=== PATIENT | male | born 1965 | race Caucasian/White ===

== ENCOUNTER 2024-04-01 09:29 | Emergency (ER) | payer OTHER, SELFPAY ==
[2024-04-01 09:48] VITALS: BP 115/86; PULSE 78; RESP 20; TEMP 36.6; O2SAT 97
[2024-04-01 10:25] LABS: Lactate 0.9 mmol/L (0.6-1.4)
[2024-04-01 10:26] LABS: Abs Immature Grans 0.03 10^3/uL (0.0-0.06); Absolute Basophil Count 0.04 10^3/uL (0.0-0.2); Absolute Eosinophil Count 0.09 10^3/uL (0.0-0.7); Absolute Lymphocyte Count 1.28 10^3/uL (1.2-3.4); Absolute Neutrophil Count 4.72 10^3/uL (1.2-6.7); Basophils % 0.6 %; Eosinophils % 1.4 %; HCT 42.3 % (40.0-50.0); HGB 14.9 g/dL (13.5-17.5); Immature Grans % 0.5 %; Lymphocytes % 19.5 %; MCHC 35.2 % (32.0-36.0); MCV 85 fL (80-95); Monocytes % 6.1 %; Neutrophils % 71.9 %; Platelet Count 354 10^3/uL (130-400); RBC 4.96 10^6/uL (4.36-5.78); RDW 10.9 % (11.8-14.1); RDW-SD 33.5 fL; WBC 6.56 10^3/uL (4.4-10.8)
[2024-04-01 10:43] LABS: ALT 26 U/L (16-63); AST 17 U/L (15-37); Albumin 4.4 g/dL (3.4-5.0); Alkaline Phosphatase 77 U/L (46-116); Anion Gap 6.2 mmol/L (3-11); BUN 14 mg/dL (7-18); Bilirubin, Total 0.6 mg/dL (0.2-1.0); CO2 31.8 mmol/L (21.0-32.0); Calcium 9.6 mg/dL (8.5-10.1); Chloride 103 mmol/L (98-107); Estimated GFR 88.33 (mL/min/1.73m2); Glucose 106 mg/dL (74-106); Potassium 4.1 mmol/L (3.5-5.1); Sodium 141 mmol/L (136-145); Total Protein 8.1 g/dL (6.4-8.2)
[2024-04-01 10:59] LABS: Procalcitonin < 0.1 ng/mL
[2024-04-01 11:36] LABS: Bilirubin Negative (Negative); Blood Trace-intact (Negative); Clarity Sl Cloudy (Clear); Glucose Negative (Negative); Ketones Negative (Negative); Leukocyte Esterase Large (Negative); Nitrite Positive (Negative); Specific Gravity 1.015 (1.005-1.025); Urobilinogen 0.2 mg/dL (Up to 0.2)
[2024-04-01 11:43] LABS: Epithelial Cells Moderate HPF (Negative); WBC 20-50 HPF (0-5)
[2024-04-01 11:44] LABS: Bacteria Few HPF (Negative); C & S Indicated? No/Sq. Contamination; Casts Negative LPF (Negative); Crystals Negative HPF (Negative); Mucus Trace (Negative)
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
[2024-04-01 12:09] VITALS: BP 115/86; PULSE 78; RESP 20; TEMP 36.6; O2SAT 97
== END 2024-04-01 12:22 | disposition home or self-care (01) ==
PROVIDERS: Emergency Provider Student in an Organized Health Care Education/Training Program; PCP Internal Medicine
DX: N39.0 Urinary tract infection, site not specified; N31.9 Neuromuscular dysfunction of bladder, unspecified; Z96.82 Presence of neurostimulator; Z87.440 Personal history of urinary (tract) infections
CPT/HCPCS: 80053; 84145; 99283; 81003; 81015; 83605; 85025; 99284

== ENCOUNTER 2024-04-05 15:15 | Emergency (ER) | payer OTHER, SELFPAY ==
[2024-04-05] VITALS (8 sets, daily range): BP systolic 118–143; BP diastolic 85–100; PULSE 72–76; RESP 16; TEMP 36.7; O2SAT 97–100
--- NOTE | 2024-04-05 15:56 | ED.GENADUL_ITS ---
Discharge Plan Disposition Patient Disposition: Home Condition: Improving Discharge Details Clinical Impression: Acute flank pain, Acute UTI Primary Care Provider: Bird Chao ED Provider: Demar Latham Home Meds and New Rx's Prescriptions: New cefpodoxime 200 mg tablet 200 mg PO BID 10 Days Qty: 20 0RF Rx Instructions: must administer with a meal/food No Action sulfamethoxazole-trimethoprim [Bactrim DS] 800-160 mg tablet 1 tab PO BID aripiprazole [Abilify] 2 mg tablet 2 mg PO DAILY tamsulosin [Flomax] 0.4 mg capsule 0.4 mg PO DAILY metoprolol tartrate 25 mg tablet 25 mg PO BID aspirin 81 mg capsule 81 mg PO DAILY Discharge Instructions Instructions: Urinary Tract Infection, Adult ED Additional Instructions: Please discontinue old antibiotic and start new antibiotic cefpodoxime. Please return to the emerged part for any worsening symptoms HPI General Date/Time Provider Initiated Documentation: 04/05/24 15:47 . HPI Narrative: 58-year-old male history of bladder stimulator, recurrent UTIs currently on Bactrim for urinary tract infection presents with worsening left flank discomfort nausea over the last couple of days. Related Data Home Medications Medication Instructions Recorded Confirmed aripiprazole 2 mg tablet (Abilify) 2 mg PO DAILY 04/01/24 04/05/24 aspirin 81 mg capsule 81 mg PO DAILY 04/01/24 04/05/24 metoprolol tartrate 25 mg tablet 25 mg PO BID 04/01/24 04/05/24 sulfamethoxazole 800 1 tab PO BID 04/01/24 04/05/24 mg-trimethoprim 160 mg tablet (Bactrim DS) tamsulosin 0.4 mg capsule (Flomax) 0.4 mg PO DAILY 04/01/24 04/05/24 cefpodoxime 200 mg tablet 200 mg PO BID 10 days #20 tabs 04/05/24 Previous Rx's Medication Instructions Recorded cefpodoxime 200 mg tablet 200 mg PO BID 10 days #20 tabs 04/05/24 Allergies Allergy/AdvReac Type Severity Reaction Status Date / Time ciprofloxacin [From Cipro] Allergy Mild Hives Verified 04/05/24 15:21 General Stated Complaint: FlankPain TIERNEY: 3 Review of Systems Narrative: Review of Systems Constitutional: negative Eyes: negative ENT: negative Cardiovascular: negative Respiratory: negative Gastrointestinal: Nausea : Left flank pain Musculoskeletal: negative Skin: negative Neurologic: negative Psych: negative Exam Narrative Exam Narrative: Physical Examination General: alert, awake, cooperative, resting comfortably, no acute distress HEENT: normocephalic, atraumatic; PERRL, EOM intact, conjunctiva normal; no nasal discharge; moist mucous membranes, oral and pharyngeal mucosa normal, tolerating secretions Neck: supple, trachea midline; full ROM Chest: normal to inspection Respiratory: normal respiratory effort, speaking in full sentences, clear to auscultation, no wheezing, rales or rhonchi Cardiac: regular rate, regular rhythm, S1S2 intact, no murmurs rubs or gallops GI: abdomen soft, non-tender, non-distended; no palpable mass or hepatosplenomegaly Back: Mild left flank discomfort with percussion Skin: no lesions, rashes or trauma appreciated Neuro: AAOx3, normal speech, moving all extremities Psych: Appropriate mood and affect Course Vital Signs Vital signs: Vital Signs Temperature 36.7 C 04/05/24 15:18 Pulse 76 04/05/24 15:18 Respiratory Rate 16 04/05/24 15:18 Blood Pressure 136/85 04/05/24 15:18 Pulse Oximetry 100 04/05/24 15:18 Temperature 36.7 C 04/05/24 15:18 Temperature Source Temporal Artery Scan 04/05/24 15:18 Pulse 76 04/05/24 15:18 Respiratory Rate 16 04/05/24 15:18 Blood Pressure 136/85 04/05/24 15:18 Pulse Oximetry 100 04/05/24 15:18 Medical Decision Making 58-year-old male history of bladder stimulator, recurrent UTIs, currently on Bactrim presents with worsening left flank discomfort and nausea, no active vomiting, afebrile nontoxic mild CVA tenderness with percussion nonperitoneal, was unable to find urine culture from last visit will send urine culture today, will change patient's antibiotic regimen to cefpodoxime 20 mg twice daily for 10 days, given nontoxic appearance recent medical evaluation with laboratory workup will trial p.o. meds IM meds close reassessment of symptomatology if improving and persistently nontoxic will be discharged with home care instructions and return precautions. Low suspicion for kidney stones must consider early pyelonephritis 17: 40 patient resting company no acute distress is able to tolerate p.o. antibiotics. Urine culture has been sent. Will call in prescription for cefpodoxime. Home care instruction return precautions given Quality:SDOH Health Related Social Needs: No Data to Display PFSH All Active Problems (Updated 04/05/24 @ 17:40 by Demar Latham MD) Acute UTI (Acute) Acute flank pain (Acute) Urinary tract infection (Acute) Social History Smoking/Tobacco Use Status: Never Smoking risk assessment performed?: Yes Alcohol Intake: never Substance use type: does not use Additional Social history: currently incarcerated for next 7-8 years
[2024-04-05] MEDS: Acetaminophen 325 MG TAB 650 MG PO (16:07)
[2024-04-05] MEDS: Ketorolac 15 MG/ML VIAL IM (16:07)
[2024-04-05] MEDS: Ondansetron O.D.T. 4 MG TABEF SL (16:08)
[2024-04-05] MEDS: Cefpodoxime 200 MG TAB PO (16:08)
== END 2024-04-05 17:46 | disposition home or self-care (01) ==
PROVIDERS: Emergency Provider Emergency Medicine; PCP Internal Medicine
DX: R10.30 Lower abdominal pain, unspecified (principal); R11.2 Nausea with vomiting, unspecified; N39.0 Urinary tract infection, site not specified
CPT/HCPCS: 96372; 99284; 87086; 99283; J1885

== ENCOUNTER 2024-04-05 23:56 | Observation (INO) | payer OTHER, SELFPAY ==
[2024-04-05 23:44] VITALS: BP 150/91; PULSE 80; RESP 17; TEMP 36.4; O2SAT 98
--- NOTE | 2024-04-05 23:52 | ED.GENADUL_ITS ---
Discharge Plan Disposition Patient Disposition: Admit to [facility] Condition: Stable Discharge Details Clinical Impression: Pyelonephritis Primary Care Provider: Bird Chao ED Provider: Jhonny Garber [place] Meds and New Rx's Prescriptions: No Action sulfamethoxazole-trimethoprim [Bactrim DS] 800-160 mg tablet 1 tab PO BID aripiprazole [Abilify] 2 mg tablet 2 mg PO DAILY tamsulosin [Flomax] 0.4 mg capsule 0.4 mg PO DAILY metoprolol tartrate 25 mg tablet 25 mg PO BID aspirin 81 mg capsule 81 mg PO DAILY cefpodoxime 200 mg tablet 200 mg PO BID 10 Days Qty: 20 0RF Rx Instructions: must administer with a meal/food HPI General Mode of arrival: ambulatory . Date/Time Provider Initiated Documentation: 04/06/24 00:03 . Limitations to Documentation: no limitations . Information obtained by: patient . HPI Narrative: Patient presents to ED for second time today and third time in 4 days for presumed UTI, pyelonephritis. Patient with a nonfunctioning bladder stimulator. He is able to urinate but will straight cath at the end of each day to be sure the bladder is empty before bed. Currently incarcerated. Initial visit to ED resulted in patient being started on Bactrim. Subsequent visit today for flank pain resulted in change from Bactrim to cefpodoxime. He was returned to present but developed severe worsening pain in the left flank, new pain in the right flank, chills, vomiting. At this point no urine culture is actually available. Initial urine was not cultured because of epithelial cell contamination. New culture was sent today but is pending. Related Data Home Medications Medication Instructions Recorded Confirmed aripiprazole 2 mg tablet (Abilify) 2 mg PO DAILY 04/01/24 04/05/24 aspirin 81 mg capsule 81 mg PO DAILY 04/01/24 04/05/24 metoprolol tartrate 25 mg tablet 25 mg PO BID 04/01/24 04/05/24 sulfamethoxazole 800 1 tab PO BID 04/01/24 04/05/24 mg-trimethoprim 160 mg tablet (Bactrim DS) tamsulosin 0.4 mg capsule (Flomax) 0.4 mg PO DAILY 04/01/24 04/05/24 cefpodoxime 200 mg tablet 200 mg PO BID 10 days #20 tabs 04/05/24 04/05/24 Previous Rx's Medication Instructions Recorded cefpodoxime 200 mg tablet 200 mg PO BID 10 days #20 tabs 04/05/24 Allergies Allergy/AdvReac Type Severity Reaction Status Date / Time ciprofloxacin [From Cipro] Allergy Mild Hives Verified 04/05/24 23:55 General Stated Complaint: FlankPain TIERNEY: 3 Review of Systems Narrative: Per HPI Exam Narrative Exam Narrative: Const: WDWN male in NAD. VS per triage. HEENT: NC/AT. Normal facial exam. Neck: Supple. Trachea midline. Lungs: Normal respiratory effort. Lungs are clear. Cor: RRR without murmur. Good radial pulses. GI: Soft/ND/NT. Back: Left CVAT present. Mild right CVAT present. Neuro: A+O x 3. Normal speech, mentation, gait. Cranial nerves II - XII grossly intact. No gross motor or sensory deficit. Ext: No C/C/E. Course Vital Signs Vital signs: Vital Signs Temperature 97.5 F L 04/05/24 23:44 Pulse 80 04/05/24 23:44 Respiratory Rate 17 04/05/24 23:44 Blood Pressure 150/91 H 04/05/24 23:44 Pulse Oximetry 98 04/05/24 23:44 Temperature 97.5 F L 04/05/24 23:44 Pulse 80 04/05/24 23:44 Respiratory Rate 17 04/05/24 23:44 Blood Pressure 150/91 H 04/05/24 23:44 Pulse Oximetry 98 04/05/24 23:44 Oxygen Delivery Method Room Air 04/05/24 23:44 Oxygen Flow Rate 0 04/05/24 23:44 Pain Level 10 04/05/24 23:44 Medical Decision Making Patient arrives with worsening back and flank pain now associated with chills and vomiting. On Bactrim for presumed UTI and changed to cefpodoxime today. Did get a single evening dose of the cefpodoxime but vomited 2 hours later. He has allergies to fluoroquinolones. He is afebrile here and hemodynamically stable. Has significant left CVAT and mild right CVAT. IV established and fluids started. He is given a gram of ceftriaxone. He is given morphine and ondansetron for symptoms. Repeat labs and a stone study CT ordered. Patient's white count remains normal with normal differential. Chemistries remain normal. CT scan preliminary read with out evidence of ureteral stone or obstruction. Patient is feeling better after fluids, pain meds and antiemetics. Given 4 days of outpatient treatment with Bactrim and second visit to ED today for worsening pain and now vomiting and chills will plan admission to hospitalist for further IV antibiotic, symptom control pending results of today's urine culture. Discussed with patient. Discussed with hospitalist. Medical Records Medical records reviewed: Yes I reviewed the patient's medical records. Medical records narrative: Previous to ED visit Lab Data Lab results reviewed: Yes I reviewed the patient's lab results. Lab results narrative: Labs from 4 days ago and from today. Quality:SDOH Health Related Social Needs: No Data to Display PFSH All Active Problems (Updated 04/06/24 @ 02:47 by Jhonny Garber MD) Pyelonephritis (Acute) Acute UTI (Acute) Acute flank pain (Acute) Urinary tract infection (Acute) Medical History (Updated 04/06/24 @ 02:47 by Jhonny Garber MD) Neurogenic bladder Surgical History (Updated 04/05/24 @ 23:57 by Jhonny Garber MD) S/P implantation of urinary electronic stimulator device Social History Smoking/Tobacco Use Status: Never Smoking risk assessment performed?: Yes Alcohol Intake: never Substance use type: does not use Housing: other Additional Social history: currently incarcerated for next 7-8 years
[2024-04-05 23:56] VITALS: BP 150/91; PULSE 80; RESP 17; TEMP 36.4; O2SAT 98
[2024-04-06] VITALS (8 sets, daily range): BP systolic 104–135; BP diastolic 76–93; PULSE 62–90; RESP 16–18; TEMP 36.5–37.3; O2SAT 95–98
--- NOTE | 2024-04-06 | DI.CT_ITS ---
Exam(s) CT RENAL COLIC WO EXAM: CT RENAL COLIC WO CLINICAL HISTORY: uti, worsening left flank pain. TECHNIQUE: Imaging Protocol: Axial computed tomography images with coronal and sagittal reformatted images were created and reviewed. CONTRAST MATERIAL: Noncontrast COMPARISON: No exams were available for comparison FINDINGS: ABDOMEN: Lung Bases: Normal where visualized. Small hiatal hernia. Liver: Normal attenuation. No measurable mass. Gallbladder and biliary tract: No radiodense calculus or dilation. Pancreas: Normal density, no calcifications or inflammatory process. Spleen: Normal. Kidneys: Normal size, contour and axis. No radiodense stones or obstructive uropathy. No masses seen. Adrenal glands: No masses seen. Abdominal Aorta: Abdominal portion non-dilated. Soft tissues: Lower anterior midline scar PELVIS: Bladder: somewhat distended. There is anterior wall thickening of the bladder. No evidence of ston es.No visible mass. Bowel: No obstruction or bowel wall thickening. Increased quantity of stool. Mild diverticulosis. No evidence of diverticulitis. Reproductive: Prostate not enlarged. Calcification is present. Peritoneal cavity: No ascites, collection or mesenteric inflammatory response. Bones: Unremarkable for age.. Sacral stimulator device. IMPRESSION: No evidence of urinary tract calculi or hydronephrosis. RADIATION DOSE DELIVERED: Total DLP DATA REPOSITORY: All CT scans at this facility are submitted to the National Radiology Data Registry (NRDR) Dose Index Registry (DIR) with the [employer] (ACR). RADIATION OPTIMIZATION: All CT scans at this facility use at least one of these dose optimization te chniques: automated exposure control; mA and/or kV adjustment per patient size (includes targeted exa ms where dose is matched to clinical indication); or iterative reconstruction.
[2024-04-06] MEDS: Ondansetron O.D.T. 4 MG TABEF PO ×2 (00:26→08:31)
[2024-04-06] MEDS: Ketorolac 15 MG/ML VIAL IVP ×4 (00:26→19:59)
[2024-04-06] MEDS: Lactated Ringers 1,000 ML 1000 ML IV (00:27)
[2024-04-06] MEDS: MORPHine 4 MG/ML SYR IVP ×2 (00:27→06:49)
[2024-04-06] MEDS: cefTRIAXone 1 GM VIAL (00:44)
[2024-04-06 00:45] LABS: Abs Immature Grans 0.04 10^3/uL (0.0-0.06); Absolute Basophil Count 0.04 10^3/uL (0.0-0.2); Absolute Eosinophil Count 0.09 10^3/uL (0.0-0.7); Absolute Monocyte Count 0.61 10^3/uL (0.1-0.8); Absolute Neutrophil Count 5.17 10^3/uL (1.2-6.7); Basophils % 0.5 %; Eosinophils % 1.1 %; HCT 37.9 % (40.0-50.0); HGB 13.3 g/dL (13.5-17.5); Immature Grans % 0.5 %; Lymphocytes % 25.2 %; MCHC 35.1 % (32.0-36.0); MCV 86 fL (80-95); MPV 8.9 fL (8.0-11.0); Monocytes % 7.7 %; Platelet Count 315 10^3/uL (130-400); RBC 4.43 10^6/uL (4.36-5.78); RDW-SD 34.2 fL; WBC 7.95 10^3/uL (4.4-10.8)
[2024-04-06] MEDS: cefTRIAXone 1 GM/50 ML BAG IVPB (00:45)
[2024-04-06 00:49] LABS: Anion Gap 9.3 mmol/L (3-11); BUN 9 mg/dL (7-18); CO2 27.7 mmol/L (21.0-32.0); CREATININE 1.1 mg/dL (0.70-1.30); Calcium 9.1 mg/dL (8.5-10.1); Chloride 103 mmol/L (98-107); Estimated GFR 78.79 (mL/min/1.73m2); Glucose 103 mg/dL (74-106); Potassium 4.4 mmol/L (3.5-5.1); Sodium 140 mmol/L (136-145)
--- NOTE | 2024-04-06 02:35 | DI.VRAD_ITS ---
PROCEDURE INFORMATION: Exam: CT Abdomen And Pelvis Without Contrast Exam date and time: 04/06/2024 12:56 AM Age: 58 years old Clinical indication: Abdominal pain; Prior surgery; Surgery date: 6+ months; Surgery type: Bladder pacemaker per patient; Patient HX: UTI, worsening left flank pain, TECHNIQUE: Imaging protocol: Computed tomography of the abdomen and pelvis without contrast. COMPARISON: No relevant prior studies available. FINDINGS: Tubes, catheters and devices: Subcutaneously implanted device in the upper right buttock with an associated lead extending through a left sacral neural foramen. Correlation with procedure history recommended. Lungs: Lung bases clear. Diaphragm: Small hiatal hernia. Liver: Grossly unremarkable unenhanced liver. Gallbladder and bile ducts: Gallbladder partially collapsed. No calcified gallstones seen. No biliary dilatation. Pancreas: Grossly unremarkable unenhanced pancreas. Spleen: Grossly unremarkable unenhanced spleen. Adrenal glands: Normal appearing adrenal glands. Kidneys and ureters: Small indeterminate hypoattenuating left renal lesion, not well characterized but statistically most likely a small renal cyst. Otherwise grossly unremarkable unenhanced kidneys. No radiopaque urinary tract stones, hydronephrosis, or evidence of recent stone passage. Stomach and bowel: No oral contrast. Stomach partially decompressed. No small bowel dilatation to suggest obstruction. Normal-appearing colon. No evidence of diverticulitis or colitis. Appendix: Appendix not identified, obscured if present. Correlation with surgical history recommended. If there is clinical concern for acute appendicitis and the patient still has an appendix, additional evaluation would be recommended. Intraperitoneal space: No gross ascites or free air. Vasculature: Normal caliber abdominal aorta. Lymph nodes: No pathologically enlarged mesenteric, retroperitoneal, or pelvic sidewall lymph nodes. Urinary bladder: Normal appearing urinary bladder. Reproductive: Normal-sized prostate gland and seminal vesicles. Coarse prostate calcifications. Bones/joints: No acute fracture seen among the bones of the abdomen or pelvis. Soft tissues: No significant ventral or inguinal hernia. IMPRESSION: 1. No radiopaque urinary tract stones, hydronephrosis, or evidence of recent stone passage. 2. No acute bowel pathology demonstrated. 3. Small hiatal hernia. Dictated and Authenticated by: Salas Cristina MD. Ordering:DAFNE Barry MD
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
[2024-04-06] MEDS: Normal Saline Flush 10 ML SYR IVP ×4 (06:48→18:09)
[2024-04-06 07:13] LABS: Calculated LDL 95 mg/dL (<100); Cholesterol 159 mg/dL (<200); HDL Cholesterol 48 mg/dL (40-60); Triglyceride 81 mg/dL (<150)
[2024-04-06] MEDS: Tamsulosin 0.4 MG CAPCR PO (08:26)
[2024-04-06] MEDS: Aspirin 81 MG CHEW PO (08:26)
[2024-04-06] MEDS: ARIPiprazole 2 MG TAB PO (08:26)
[2024-04-06] MEDS: Metoprolol 12.5 MG TAB 25 MG PO ×2 (08:26→19:59)
[2024-04-06] MEDS: Enoxaparin 40 MG/0.4 ML SYR SC (08:26)
--- NOTE | 2024-04-06 09:58 | W.PM.PROGNOT ---
Date of Service Date of service: 04/06/24 Time of Service: 09:59 Assessment and Plan Assessment and plan (1) Pyelonephritis: Start date: 04/06/24 Status: Acute Assessment and plan: Renal CT shows no evidence of hydronephrosis, stones. Patient reported appendectomy correlating inability to locate appendixx on imaging left renal cyst as per CT w/o -Kidneys and ureters: Small indeterminate hypoattenuating left renal lesion, not well characterized but statistically most likely a small renal cyst. Otherwise grossly unremarkable unenhanced kidneys. No radiopaque urinary tract stones, hydronephrosis, or evidence of recent stone passage. Cyst to the left kidney:No calcification seen, hairline thin wall, hypodense most likely not an Bosniak >= IIF Pain management with scheduled acetaminophen and ketorolac. PRN morphine dose reduced On ceftriaxone Procal pending (2) Acute UTI: Start date: 04/01/24 Status: Acute Assessment and plan: As above (3) Neurogenic bladder: Assessment and plan: Bladder stimulator not functional as per patient; straight cath once a day opt Wade in place (4) HTN (hypertension): Status: Chronic Assessment and plan: On metoprolol Qualifiers: Hypertension type: primary hypertension Qualified Code(s): I10 - Essential (primary) hypertension (5) Restless leg syndrome: Status: Chronic Assessment and plan: On abilify at home, ongoing inpatient (6) CAD (coronary artery disease), [place] coronary artery: Status: Chronic Assessment and plan: On plavix and ASA Discuss with Dr. Ghosh Qualifiers: [place] vs. transplanted heart: [place] heart Associated angina: without angina Qualified Code(s): I25.10 - Atherosclerotic heart disease of [place] coronary artery without angina pectoris Subjective Subjective Patient reports: no new complaints, still having pain, pain is less, tolerating liquids well, tolerating a regular diet and nausea; denies diarrhea, vomiting or shortness of breath Exam Narrative Exam Narrative: Constitutional In bed w/o acute distress HENMT: Facial structures with normal appearance Eyes: Well aligned Neuro:alert and oriented to self, person, place, time and situation. No neurological focal deficit Chest:Chest is symmetrical and normal appearance Resp:Clear lung bilaterally Cardio: regular rhythm, S1, S2, no murmur,no edema GI: Abdomen is not distended, soft and tender left upper and lower quadrant , bowel sounds are present : Positive left Costovertebral angle tenderness, no bladder distension Back/spine/Pelvis: No back tenderness, normal alignment Integumentary: No skin lesions or rash on exposed skin Psych: RASS 0, congruent mood and normal affect. Objective Last Vital Signs Temp 36.8 C 04/06/24 07:29 Pulse 71 04/06/24 07:29 Resp 17 04/06/24 07:29 BP 135/84 04/06/24 07:29 Pulse Ox 97 04/06/24 07:29 Laboratory Results - last 24 hr 04/06/24 04/06/24 04/06/24 00:30 00:40 06:50 WBC 7.95 RBC 4.43 Hgb 13.3 L Hct 37.9 L MCV 86 MCH 30.0 MCHC 35.1 RDW 11.0 L Plt Count 315 MPV 8.9 Immature Gran % 0.5 Neutrophils % 65.0 Lymphocytes % 25.2 Monocytes % 7.7 Eosinophils % 1.1 Basophils % 0.5 Nucleated RBC % 0.0 Absolute Neutrophils 5.17 Absolute Lymphocytes 2.00 Absolute Monocytes 0.61 Absolute Eosinophils 0.09 Absolute Basophils 0.04 Sodium 140 Potassium 4.4 Chloride 103 Carbon Dioxide 27.7 Anion Gap 9.3 BUN 9 Creatinine 1.1 Est GFR (CKD-EPI 2020) 78.79 Glucose 103 Calcium 9.1 Magnesium 2.0 Triglycerides 81 Total Cholesterol 159 LDL Cholesterol, Calc 95 HDL Cholesterol 48 Time Spent with Patient Time Spent with Patient: >50 minutes Time was spent: preparing to see the patient(eg.review tests), obtaining and/or reviewing separately otained hiistory, ordering medications,tests, procedures, referring, communicating with other health caregiver assisted living, indepentently interpreting results, counseling the patient and care coordination
--- NOTE | 2024-04-06 10:00 | INITIAL_ITS ---
Date of service: 04/06/24 Time of Service: 10:00 Care Management Initial Assmt Initial Assessment Reason for Hospitalization: pyelonephritis Functional Status/Living Situation Patient Presentation: Major was lying in bed with a weapons officer naval activity in attendance. He was polite but brief in his responses. Major is not and does not have any children. He has 2 sisters in [place] and speaks to them on the phone occasionally. He also has a brother that he does not communicate with. 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 His is independent with ADLs. Town of Residence: [facility] Resides with: Other ( [facility]) Significant Other/Family: Out of area (family in [place]) Employment Status: Unemployed Instrumental Activities of Daily Living (ADLs): Independent Medications Medication Management: No Issues/Barriers identified Advance Directives Advance Directives: Do you have an Advance Directive: N 04/01/24 09:30 AD On File at [facility]: N 04/01/24 09:40 Date Asked 04/01/24 04/01/24 09:40 AD Date Reviewed COLST On File at [facility] COLST Date Scanned Code Status Resuscitation Status Full Code Portal Pt does not currently have a portal and education provided: No Insurance Coverage/Financial Issues Insurance: [facility] ACO Member: No Care Team Visit Care Team Role Provider Type Bird Chao Primary Care Provider [facility] STAFF PHYSICIAN Jhonny Garber MD Emergency Provider [facility] STAFF PHYSICIAN Moses Nuñez Admit Provider NON-[facility] STAFF PHYSICIAN Attending Provider Discharge Potential Discharge Needs: PCP F/U Appt Anticipated Barriers to Discharge: None Identified Patient/Family Education Needs: Review discharge instructions, discuss Ask Me Three Transportation: Other (corrections staff) Plan: Major will return to [facility] when medically cleared. He will follow up with their providers and plan of care and transport with corrections officers. CM will follow and support discharge needs. PFSH All Active Problems (Updated 04/06/24 @ 06:40 by Moses Nuñez) CAD (coronary artery disease), [place] coronary artery (Chronic) Restless leg syndrome (Chronic) HTN (hypertension) (Chronic) Pyelonephritis (Acute) Acute UTI (Acute) Acute flank pain (Acute) Urinary tract infection (Acute) Medical History Neurogenic bladder Surgical History S/P implantation of urinary electronic stimulator device Social History Smoking/Tobacco Use Status: Never Smoking risk assessment performed?: Yes Alcohol Intake: never Substance use type: does not use Housing: other Additional Social history: currently incarcerated for next 7-8 years SDOH(Care Management) Screening Will the Patient Participate in the Screening?: Unable to obtain Social Determinants of Health Comments(SDOH Details): incarcerated
[2024-04-06 10:43] LABS: Procalcitonin < 0.1 ng/mL
--- NOTE | 2024-04-06 12:08 | PHA.REVIEW2 ---
Pharmacy Admission Review Admission Clinical Review Admission Pharmacy Review: Pyelonephritis (Acute) Acute UTI (Acute) ciprofloxacin [From Cipro] Allergy (Mild, Verified 04/05/24 23:55) Hives Resuscitation Status Full Code Height 5 ft 9 in Weight 81.647 kg Comments Comments/Follow Ups: Watch BP, HR, labs for culture results and for med changes. Pharmacy Admission Review Renal Dosing Renal Dosing: BUN 9 mg/dL (7-18) 04/06/24 00:30 Creatinine 1.1 mg/dL (0.70-1.30) 04/06/24 00:30 Medications needing adjustments: Reviewed (Crcl ~86.6 mL/min current meds okay) Anticoagulation Anticoagulation: Hgb 13.3 g/dL (13.5-17.5) L 04/06/24 00:40 Hct 37.9 % (40.0-50.0) L 04/06/24 00:40 Plt Count 315 10^3/uL (130-400) 04/06/24 00:40 Creatinine 1.1 mg/dL (0.70-1.30) 04/06/24 00:30 DVT Prophylaxis: Reviewed Medications: Enoxaparin Opiate Usage Evaluate Pain Scale/Pains Meds: Reviewed Scheduled Bowel Reg ordered if on Opiates?: No (has PRN meds ordered) Relevant Labs Relevant Labs: Sodium 140 mmol/L (136-145) 04/06/24 00:30 Potassium 4.4 mmol/L (3.5-5.1) 04/06/24 00:30 Chloride 103 mmol/L (98-107) 04/06/24 00:30 Magnesium 2.0 mg/dL (1.8-2.4) 04/06/24 06:50 Electrolytes, C-Reactive P, ESR: Reviewed DM Control DM Control: N/A Cardiac Review BP, HR, EF%: Reviewed (BP and HR have been normal to high so far this admission) QTc Review QTc: N/A IV to PO Switch IV Medications: Reviewed Home Meds Home Med List reviewed: Reviewed Relevent Home Meds Not ordered & why?: cefpodoxime and sulfamethoxazole/trimethoprim (has IV antibiotics ordered) Current Meds Current Medication Order Review: Intervened (Discontinued duplicate med orders; adjusted two PRN meds to they cross over to pyxis correctly.) Pharmacy Antibiotic Review Relevant Labs: Relevant Labs 04/06/24 00:30 Procalcitonin < 0.1 Pharmacy Antibiotic Activity: C/S review and Reviewed, no change Comments: Urine culture no growth at 24 hours. Ceftriaxone ordered for UTI. Comments Comments/Follow Ups: Watch BP, HR, labs for culture results and for med changes.
[2024-04-06] MEDS: Acetaminophen 325 MG TAB PO ×3 (12:28→23:57)
[2024-04-06] MEDS: MORPHine 2 MG/ML SYR IVP (18:09)
[2024-04-06] MEDS: CEFEPIME 2 GM in Normal Saline 100 ML IVPB (18:14)
[2024-04-07] MEDS: Ketorolac 15 MG/ML VIAL IVP ×4 (02:10→19:53)
[2024-04-07] MEDS: CEFEPIME 2 GM in Normal Saline 100 ML IVPB ×3 (02:10→17:41)
[2024-04-07 03:19] VITALS: BP 121/83; PULSE 69; RESP 19; TEMP 36.2; O2SAT 100
[2024-04-07] MEDS: Acetaminophen 325 MG TAB PO ×4 (06:01→23:54)
[2024-04-07 06:50] LABS: HCT 38.8 % (40.0-50.0); HGB 13.6 g/dL (13.5-17.5); MCHC 35.1 % (32.0-36.0); MCV 86 fL (80-95); MPV 9.2 fL (8.0-11.0); Platelet Count 329 10^3/uL (130-400); RBC 4.54 10^6/uL (4.36-5.78); RDW 11.2 % (11.8-14.1); RDW-SD 34.6 fL; WBC 6.05 10^3/uL (4.4-10.8)
[2024-04-07 07:08] LABS: ALT 21 U/L (16-63); AST 11 U/L (15-37); Albumin 3.8 g/dL (3.4-5.0); Alkaline Phosphatase 59 U/L (46-116); Anion Gap 5.9 mmol/L (3-11); BUN 6 mg/dL (7-18); Bilirubin, Total 0.5 mg/dL (0.2-1.0); CO2 28.1 mmol/L (21.0-32.0); Calcium 8.9 mg/dL (8.5-10.1); Chloride 107 mmol/L (98-107); Estimated GFR 88.33 (mL/min/1.73m2); Glucose 89 mg/dL (74-106); Magnesium 2.1 mg/dL (1.8-2.4); Potassium 4.8 mmol/L (3.5-5.1); Sodium 141 mmol/L (136-145); Total Protein 6.8 g/dL (6.4-8.2)
[2024-04-07 07:14] VITALS: BP 128/87; PULSE 71; RESP 17; TEMP 36.6; O2SAT 98
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
[2024-04-07] MEDS: Normal Saline Flush 10 ML SYR IVP ×4 (08:29→17:41)
[2024-04-07] MEDS: Enoxaparin 40 MG/0.4 ML SYR SC (08:32)
[2024-04-07] MEDS: Tamsulosin 0.4 MG CAPCR PO (08:32)
[2024-04-07] MEDS: ARIPiprazole 2 MG TAB PO (08:32)
[2024-04-07] MEDS: Metoprolol 12.5 MG TAB 25 MG PO ×2 (08:32→19:53)
[2024-04-07] MEDS: Aspirin 81 MG CHEW PO (08:32)
--- NOTE | 2024-04-07 09:28 | CMPROGNOTE_ITS ---
Date of service: 04/07/24 Time of Service: 09:28 Care Management Progress Note Progress Note Text Progress Note Text: Major continues to receive IV antibiotics for the pyelonephritis. A urine culture taken prior to admission grew Pseudomonas. [facility] ID was consulted and recommended Fosfomycin for 48 hours. This is being administered and will be completed tomorrow. Major will likely be able to return to the correctional facility tomorrow. Discharge Anticipated Barriers to Discharge: None Identified Patient/Family Education Needs: Review discharge instructions, discuss Ask Me Three Transportation: Other (with corrections staff) Plan: Major will return to [facility] when medically cleared. He will follow up with their providers and plan of care and transport with corrections officers. CM will follow and support discharge needs. SDOH(Care Management) Screening Will the Patient Participate in the Screening?: Unable to obtain Social Determinants of Health Comments(SDOH Details): incarcerated
--- NOTE | 2024-04-07 09:42 | PGE_ITS ---
Date of Service Date of service: 04/07/24 Time of Service: 09:43 Assessment and Plan Assessment and plan (1) Pyelonephritis: Start date: 04/06/24 Status: Acute Assessment and plan: Renal CT shows no evidence of hydronephrosis, stones. Patient reported appendectomy correlating inability to locate appendixx on imaging left renal cyst as per CT w/o -Kidneys and ureters: Small indeterminate hypoattenuating left renal lesion, not well characterized but statistically most likely a small renal cyst. Otherwise grossly unremarkable unenhanced kidneys. No radiopaque urinary tract stones, hydronephrosis, or evidence of recent stone passage. Cyst to the left kidney:No calcification seen, hairline thin wall, hypodense most likely not an Bosniak >= IIF Pain management with scheduled acetaminophen and ketorolac. Continue PRN morphine dose reduced but has not had any since last night On cefepime since 04/06 will continue until 04/07 and discontinue. UA from 04/01 grew pseudomonas on 04/03 that was pansensitive Procal was negative (2) Acute UTI: Start date: 04/01/24 Status: Acute Assessment and plan: As above urine culture from correctional facility obtained and was growing pseudomonas aon cefepime as per [facility] ID consult with Dr. Avila with recommendation for cefepime on 04/06. Urology consult d/t bladder implant in the setting of UTI with pseudomonas -No seeding possible as he insertion is in the -S-spine and not the bladder -Dr Archuleta will investigate the loss of the controller for the bladder stimulator -Discussion re: previous antibiotics, was on Bactrim DS since 04/01, then in on ceftriaxone will complete 48 hours of cefepime as urine on 04/03 showed no growth (3) Neurogenic bladder: Assessment and plan: Bladder stimulator not functional as per patient; straight cath once a day opt Shrestha in place Patient catheterizes daily at HS, will need to increase frequency at discharge to at least Q12 hours (4) HTN (hypertension): Status: Chronic Assessment and plan: Continue metoprolol Qualifiers: Hypertension type: primary hypertension Qualified Code(s): I10 - Essential (primary) hypertension (5) Restless leg syndrome: Status: Chronic Assessment and plan: On abilify (6) CAD (coronary artery disease), [place] coronary artery: Status: Chronic Assessment and plan: On home dose of plavix and ASA Discuss with Dr. Ghosh Qualifiers: Associated angina: without angina [place] vs. transplanted heart: [place] heart Qualified Code(s): I25.10 - Atherosclerotic heart disease of [place] coronary artery without angina pectoris Subjective Subjective Patient reports: feels better, pain is less, tolerating liquids well, tolerating a regular diet, voiding w/o difficulty and no bowel movement; denies nausea, vomiting, shortness of breath or fever Exam Narrative Exam Narrative: Constitutional In bed w/o acute distress Neuro:alert and oriented to self, person, place, time and situation. No neurological focal deficit Chest:Chest is symmetrical and normal appearance Resp:Clear lung bilaterally Cardio: regular rhythm, S1, S2, no murmur,no edema GI: Abdomen is not distended, soft and non-tender, bowel sounds are present : less left Costovertebral angle tenderness, no bladder distension shrestha in place Back/spine/Pelvis: No back tenderness, normal alignment Integumentary: No skin lesions or rash on exposed skin Psych: RASS 0, congruent mood and normal affect. Objective Last Vital Signs Temp 36.6 C 04/07/24 07:14 Pulse 71 04/07/24 07:14 Resp 17 04/07/24 07:14 BP 128/87 04/07/24 07:14 Pulse Ox 98 04/07/24 07:14 Laboratory Results - last 24 hr 04/06/24 04/07/24 00:30 06:28 WBC 6.05 RBC 4.54 Hgb 13.6 Hct 38.8 L MCV 86 MCH 30.0 MCHC 35.1 RDW 11.2 L Plt Count 329 MPV 9.2 Sodium 141 Potassium 4.8 Chloride 107 Carbon Dioxide 28.1 Anion Gap 5.9 BUN 6 L Creatinine 1.0 Est GFR (CKD-EPI 2020) 88.33 Glucose 89 Calcium 8.9 Magnesium 2.1 Total Bilirubin 0.5 AST 11 L ALT 21 Alkaline Phosphatase 59 Total Protein 6.8 Albumin 3.8 Procalcitonin < 0.1 Time Spent with Patient Time Spent with Patient: >50 minutes Time was spent: preparing to see the patient(eg.review tests), obtaining and/or reviewing separately otained hiistory, ordering medications,tests, procedures, referring, communicating with other health healthcare analyst, indepentently interpreting results, counseling the patient and care coordination
[2024-04-07 11:14] VITALS: BP 129/91; PULSE 72; RESP 17; TEMP 36.6; O2SAT 97
[2024-04-07 15:22] VITALS: BP 123/77; PULSE 74; RESP 17; TEMP 36.7; O2SAT 96
[2024-04-07] MEDS: Docusate Sodium 100 MG CAP PO ×2 (16:12→19:52)
[2024-04-07 19:41] VITALS: BP 120/88; PULSE 76; RESP 17; TEMP 36.6; O2SAT 100
[2024-04-07 23:35] VITALS: BP 131/95; PULSE 68; RESP 18; TEMP 36.8; O2SAT 96
[2024-04-08] MEDS: Ketorolac 15 MG/ML VIAL IVP ×3 (02:21→13:38)
[2024-04-08] MEDS: CEFEPIME 2 GM in Normal Saline 100 ML IVPB ×2 (02:22→10:07)
[2024-04-08 03:38] VITALS: BP 127/90; PULSE 71; RESP 16; TEMP 37; O2SAT 97
[2024-04-08] MEDS: Acetaminophen 325 MG TAB PO ×2 (05:42→11:31)
[2024-04-08 07:14] LABS: Abs Immature Grans 0.03 10^3/uL (0.0-0.06); Absolute Basophil Count 0.05 10^3/uL (0.0-0.2); Absolute Eosinophil Count 0.28 10^3/uL (0.0-0.7); Absolute Lymphocyte Count 1.57 10^3/uL (1.2-3.4); Absolute Monocyte Count 0.51 10^3/uL (0.1-0.8); Absolute Neutrophil Count 4.91 10^3/uL (1.2-6.7); Basophils % 0.7 %; Eosinophils % 3.8 %; HCT 38.3 % (40.0-50.0); HGB 13.8 g/dL (13.5-17.5); Immature Grans % 0.4 %; Lymphocytes % 21.4 %; MCH 30.1 pg (27.0-33.0); MCV 84 fL (80-95); MPV 9.4 fL (8.0-11.0); Monocytes % 6.9 %; Neutrophils % 66.8 %; Platelet Count 337 10^3/uL (130-400); RBC 4.58 10^6/uL (4.36-5.78); WBC 7.35 10^3/uL (4.4-10.8)
[2024-04-08 07:38] LABS: Anion Gap 8.7 mmol/L (3-11); BUN 9 mg/dL (7-18); CO2 25.3 mmol/L (21.0-32.0); CREATININE 0.9 mg/dL (0.70-1.30); Calcium 8.9 mg/dL (8.5-10.1); Chloride 107 mmol/L (98-107); Estimated GFR 100.24 (mL/min/1.73m2); Glucose 92 mg/dL (74-106); Potassium 3.8 mmol/L (3.5-5.1); Sodium 141 mmol/L (136-145)
[2024-04-08 07:40] VITALS: BP 146/96; PULSE 81; RESP 18; TEMP 36.6; O2SAT 97
[2024-04-08] MEDS: Enoxaparin 40 MG/0.4 ML SYR SC (07:49)
[2024-04-08] MEDS: Normal Saline Flush 10 ML SYR IVP ×2 (07:50→10:08)
[2024-04-08] MEDS: Docusate Sodium 100 MG CAP PO ×2 (07:51→13:38)
[2024-04-08] MEDS: ARIPiprazole 2 MG TAB PO (07:51)
[2024-04-08] MEDS: Tamsulosin 0.4 MG CAPCR PO (07:51)
[2024-04-08] MEDS: Aspirin 81 MG CHEW PO (07:51)
[2024-04-08] MEDS: Metoprolol 12.5 MG TAB 25 MG PO (07:52)
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
--- NOTE | 2024-04-08 10:06 | CMDISCH_ITS ---
Date of service: 04/08/24 Time of Service: 10:06 LACE Index Scoring Tool Questions: Length of Stay (in days): 2 Was the patient admitted via the E.D.?: Yes E.D. Visits: 3 Answers: Total Score: 8 Risk of Readmission: Low Risk Care Management Discharge Plan Reason for Hospitalization: UTI Discharge Plan: Major will return to [facility] and will follow up with their providers and plan of care. He will transport with corrections officers. Patient/Family Education Needs: Review discharge instructions, discuss Ask Me Three [facility] Health Related Social Needs: No Data to Display
[2024-04-08 11:45] VITALS: BP 133/89; PULSE 82; RESP 18; TEMP 36.6; O2SAT 96
== END 2024-04-08 15:13 ==
LOC: ER 04-06 02:47 → MS 04-06 03:57
PROVIDERS: Nurse Practitioner Acute Care; Admitting Provider Family Medicine; Emergency Provider Emergency Medicine; PCP Internal Medicine; Visit Provider Family Medicine
DX: N10 Acute pyelonephritis (principal); N31.9 Neuromuscular dysfunction of bladder, unspecified; I10 Essential (primary) hypertension; G25.81 Restless legs syndrome; I25.10 Atherosclerotic heart disease of native coronary artery without angina pectoris; Z96.82 Presence of neurostimulator; R33.8 Other retention of urine; Z79.899 Other long term (current) drug therapy; Z79.82 Long term (current) use of aspirin; B96.5 Pseudomonas (aeruginosa) (mallei) (pseudomallei) as the cause of diseases classified elsewhere
CPT/HCPCS: 00123; 36415; 51798; 80048; 80053; 80061; 84145; 85027; 96361; 96365; 96366; 96367; 96372; 96375; 96376; 99222; 99285; J1650; 74176; 83735; 85025; 99223; 99233; 99239; G0378; J0692; J0696; J1885; J2270; J3490

== ENCOUNTER 2024-04-25 22:38 | Emergency (ER) | payer OTHER, SELFPAY ==
--- NOTE | 2024-04-25 00:11 | DI.CT_ITS ---
Exam(s) CT RENAL COLIC WO EXAM: CT RENAL COLIC WO CLINICAL HISTORY: left flank pain. TECHNIQUE: Imaging Protocol: Axial computed tomography images with coronal and sagittal reformatted images were created and reviewed CONTRAST MATERIAL: Intravenous: none Oral: None COMPARISON: CT CT RENAL COLIC WO from 04/06/2024 FINDINGS: VISUALIZED LUNG BASES: No nodules nor pleural effusions evident. ABDOMEN: There is no ascites. LIVER: There are no obvious focal hepatic lesions evident of this noninfused study. GALLBLADDER/BILIARY: No obvious gallbladder pathology. CBD is not dilated. PANCREAS: There is a single small parenchymal calcification again noted pancreatic head. Pancreatic head appears slightly indistinct when compared to the 04/06/2024 study. However, this is possibly ju st related to the amount of respiratory motion artifact here when compared to the prior study. The p ancreatic duct is not dilated. There are no peripancreatic fluid collections. SPLEEN: Spleen is not enlarged. No obvious intrasplenic lesions. ADRENALS: There are no significant adrenal masses. KIDNEYS:Small benign cyst off the lateral cortex of the left kidney again noted which does not requir e further investigation. No other focal renal findings nor calculi nor hydronephrosis nor hydrourete r.. Pelvic ureters are not dilated there are no calculi at the ureterovesical junctions. There is s light thickening of the anterior wall of the urinary bladder predominately in the midline, unchanged. .. ABDOMINAL AORTA: Abdominal aorta is not enlarged. LYMPH NODES: There is no retroperitoneal nor paraaortic adenopathy. ABDOMINAL WALL: No evidence of significant anterior abdominal wall nor inguinal hernia. GI: There is no evidence of bowel obstruction, free air, nor abscess. PELVIS: LYMPH NODES: There is no intrapelvic nor inguinal adenopathy. GI: Appendix not seen. No evidence of acute appendicitis.No evidence of sigmoid diverticulitis. URINARY BLADDER: As above. REPRODUCTIVE: Prostate not enlarged. OSSEOUS: No fractures. 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 Also no hip joint space narrowing nor osteophytes. There is a left-sided trans sacral stimulator. Electrode is connected to a subcutaneous device subcu taneous tissue of the upper right buttock. The distal tip of the electrode is in the left perirectal fat, unchanged from previous. IMPRESSION: 1. There is evidence of avascular necrosis of the femoral heads bilaterally, without evidence of prabhakar apse. No obvious degenerative changes in the hip joints. No hip dysplasia. There are no vertebral compression fractures in the field of view of this study. 2. Left trans sacral stimulator again noted. 3. There is slight thickening of the midline anterior wall the urinary bladder again noted. Other findings as above. RADIATION DOSE DELIVERED: 817.11mGy.cm Total DLP DATA REPOSITORY: All CT scans at this facility are submitted to the National Radiology Data Registry (NRDR) Dose Index Registry (DIR) with the [employer] (ACR). RADIATION OPTIMIZATION: All CT scans at this facility use at least one of these dose optimization te chniques: automated exposure control; mA and/or kV adjustment per patient size (includes targeted exa ms where dose is matched to clinical indication); or iterative reconstruction.
[2024-04-25 22:44] VITALS: BP 144/114; PULSE 116; RESP 18; TEMP 35.9; O2SAT 98
--- NOTE | 2024-04-25 22:45 | ED.GENADUL_ITS ---
Discharge Plan Disposition [facility] Condition: Good Discharge Details Clinical Impression: Left flank pain Primary Care Provider: Bird Chao ED Provider: Jhonny Garber Meds and New Rx's Prescriptions: Continued tamsulosin [Flomax] 0.4 mg capsule 0.4 mg PO DAILY metoprolol tartrate 25 mg tablet 25 mg PO BID aspirin 81 mg capsule 81 mg PO DAILY sulfamethoxazole-trimethoprim [Bactrim DS] 800-160 mg tablet 1 tab PO Q12H Qty: 7 0RF cephalexin 500 mg capsule 500 mg PO TID ondansetron 4 mg tablet,disintegrating 4 mg PO TID PRN aripiprazole [Abilify] 5 mg tablet 5 mg PO DAILY Discharge Instructions Instructions: Flank Pain ED Additional Instructions: You were seen for concern of UTI. I have reviewed your urine from 625 that was obtained at the present. Your laboratory studies and CT scan here are reassuring. Would recommend to increase self-catheterization to 3 times a day pending evaluation at [facility] urology which was recommended at discharge from this hospital last month. Return to ED for fever, new or worsening pain, persistent vomiting, other concerns. HPI General Mode of arrival: ambulatory . Date/Time Provider Initiated Documentation: 04/25/24 22:45 . Limitations to Documentation: no limitations . Information obtained by: patient . HPI Narrative: Patient presents to ED with complaint of lower abdominal pain, chills, left flank pain. He was admitted here last month with UTI/pyelonephritis. Currently in DOC custody at the local corrections facility. He is straight cathing twice a day per recommendations after his discharge from here last month. He has not had recommended follow-up studies with urology at [facility] as of this point. He began having mild urinary symptoms earlier in the week. He reports being on Bactrim and Keflex that was started on Saturday. He does report urine culture being done but he does not know the results and they were not sent with him from the assisted. He denies any fever. He vomited a couple of times yesterday but is taken ondansetron today. Related Data Home Medications Medication Instructions Recorded Confirmed aspirin 81 mg capsule 81 mg PO DAILY 04/01/24 04/25/24 metoprolol tartrate 25 mg tablet 25 mg PO BID 04/01/24 04/25/24 tamsulosin 0.4 mg capsule (Flomax) 0.4 mg PO DAILY 04/01/24 04/25/24 sulfamethoxazole 800 1 tab PO Q12H #7 tabs 04/08/24 04/25/24 mg-trimethoprim 160 mg tablet (Bactrim DS) aripiprazole 5 mg tablet (Abilify) 5 mg PO DAILY 04/26/24 04/26/24 cephalexin 500 mg capsule 500 mg PO TID 04/26/24 04/26/24 ondansetron 4 mg disintegrating 4 mg PO TID PRN 04/26/24 04/26/24 tablet Previous Rx's Medication Instructions Recorded sulfamethoxazole 800 1 tab PO Q12H #7 tabs 04/08/24 mg-trimethoprim 160 mg tablet (Bactrim DS) Allergies Allergy/AdvReac Type Severity Reaction Status Date / Time ciprofloxacin [From Cipro] Allergy Mild Hives Verified 04/25/24 22:48 General TIERNEY: 3 Review of Systems Narrative: Per HPI Exam Narrative Exam Narrative: Const: WDWN male in NAD. VS per triage. HEENT: NC/AT. Normal facial exam. Neck: Supple. Trachea midline. Lungs: Normal respiratory effort. Lungs are clear. Cor: RRR without murmur. Good radial pulses. GI: Soft/ND/NT. Neuro: A+O x 3. Normal speech, mentation, gait. Cranial nerves II - XII grossly intact. No gross motor or sensory deficit. Ext: No C/C/E. Medical Decision Making Patient presenting to ED from assisted with complaint of left flank pain and chills. Was admitted last month to this hospital for UTI and pyelonephritis. Reports having urinary symptoms over the last week. Currently on Bactrim and Keflex presumably for UTI. No urine results were sent in with the patient. He is now reporting abdominal/flank pain, chills, vomiting yesterday. Request urine results from [facility] from last week. IV established and CBC, BMP sent. Straight cath urine obtained. Patient's urinalysis from 14 April is negative with a micro that shows no bacteria or white cells. Urinalysis tonight is also completely negative. CBC and BMP are normal. I did obtain a repeat stone study continues to show no evidence of hydronephrosis, hydroureter, nephrolithiasis. Patient may be returned to assisted. Recommend increase straight cath 3 times a day and follow- up with [facility] urology as recommended per discharge instructions and urology consult from last month. Return precautions provided. Medical Records Medical records reviewed: Yes I reviewed the patient's medical records. Medical records narrative: Urology consult note and discharge summary from last month admission Lab Data Lab results reviewed: Yes I reviewed the patient's lab results. Lab results narrative: See [facility] All Active Problems (Updated 04/26/24 @ 00:46 by Jhonny Garber MD) Left flank pain (Acute) Medical History Restless leg syndrome CAD (coronary artery disease), [place] coronary artery HTN (hypertension) Neurogenic bladder Surgical History S/P implantation of urinary electronic stimulator device Social History Smoking/Tobacco Use Status: Never Smoking risk assessment performed?: Yes Alcohol Intake: never Substance use type: does not use Housing: other Additional Social history: currently incarcerated for next 7-8 years
[2024-04-25 23:01] VITALS: BP 154/128; PULSE 110
[2024-04-25 23:16] VITALS: BP 176/124; PULSE 105
[2024-04-25 23:17] LABS: Abs Immature Grans 0.03 10^3/uL (0.0-0.06); Absolute Basophil Count 0.04 10^3/uL (0.0-0.2); Absolute Eosinophil Count 0.18 10^3/uL (0.0-0.7); Absolute Lymphocyte Count 2.15 10^3/uL (1.2-3.4); Absolute Monocyte Count 0.67 10^3/uL (0.1-0.8); Absolute Neutrophil Count 4.42 10^3/uL (1.2-6.7); Basophils % 0.5 %; Eosinophils % 2.4 %; HCT 42.4 % (40.0-50.0); Immature Grans % 0.4 %; Lymphocytes % 28.7 %; MCH 30.3 pg (27.0-33.0); MCHC 35.4 % (32.0-36.0); MCV 86 fL (80-95); MPV 8.5 fL (8.0-11.0); Monocytes % 8.9 %; Neutrophils % 59.1 %; Platelet Count 330 10^3/uL (130-400); RBC 4.95 10^6/uL (4.36-5.78); RDW 11.6 % (11.8-14.1); RDW-SD 35.9 fL; WBC 7.49 10^3/uL (4.4-10.8)
[2024-04-25 23:27] LABS: BUN 9 mg/dL (7-18); Calcium 9.3 mg/dL (8.5-10.1); Chloride 103 mmol/L (98-107); Estimated GFR 88.33 (mL/min/1.73m2); Glucose 92 mg/dL (74-106); Potassium 3.7 mmol/L (3.5-5.1); Sodium 141 mmol/L (136-145)
[2024-04-25 23:30] LABS: Bilirubin Negative (Negative); Blood Negative (Negative); Clarity Clear (Clear); Glucose Negative (Negative); Ketones Negative (Negative); Leukocyte Esterase Negative (Negative); Nitrite Negative (Negative); Specific Gravity <= 1.005 (1.005-1.025); Urobilinogen 0.2 mg/dL (Up to 0.2)
[2024-04-25 23:31] VITALS: BP 158/128; PULSE 115
[2024-04-25 23:46] VITALS: BP 132/114; PULSE 119
[2024-04-25] MEDS: Lactated Ringers 1,000 ML 1000 ML IV (23:48)
--- NOTE | 2024-04-26 00:38 | DI.VRAD_ITS ---
PROCEDURE INFORMATION: Exam: CT Abdomen And Pelvis Without Contrast Exam date and time: 04/26/2024 12:02 AM Age: 58 years old Clinical indication: Abdominal pain; Prior surgery; Surgery date: 6+ months; Surgery type: Bladder stimulater; Patient HX: Left flank pain TECHNIQUE: Imaging protocol: Computed tomography of the abdomen and pelvis without contrast. Radiation optimization: All CT scans at this facility use at least one of these dose optimization techniques: automated exposure control; mA and/or kV adjustment per patient size (includes targeted exams where dose is matched to clinical indication); or iterative reconstruction. COMPARISON: CT RENAL COLIC WO 04/06/2024 12:56 AM FINDINGS: Diaphragm: Small hiatal hernia. Liver: There is some liver surface irregularity which may signify hepatic cirrhosis. Gallbladder and biliary ducts: Normal. No calcified stones. No ductal dilation. Pancreas: Unremarkable. Spleen: Normal. Adrenal glands: Normal. No mass. Kidneys and ureters: Normal. No hydronephrosis. Stomach and bowel: Colonic diverticulosis. No diverticulitis. No bowel wall thickening or intestinal obstruction. Appendix: Appendix not visualized. No evidence of appendicitis. Intraperitoneal space: Unremarkable. No pneumoperitoneum. No abscess. Vasculature: Unremarkable. Lymph nodes: Unremarkable. Urinary bladder: Unremarkable as visualized. Reproductive: Unremarkable as visualized. Bones/joints: Avascular necrosis of the femoral heads bilaterally, without collapse. Soft tissues: Unremarkable. IMPRESSION: 1. There is some liver surface irregularity which may signify hepatic cirrhosis. 2. Avascular necrosis of the femoral heads bilaterally, without collapse. Dictated and Authenticated by: Jerzy Donnelly MD. Ordering:DAFNE Barry MD
[2024-04-26 00:59] VITALS: BP 152/109; PULSE 82; RESP 21; TEMP 36.7; O2SAT 98
--- NOTE | 2024-04-26 16:08 | NUR.NOTE ---
Nursing Note: [facility] questioning [facility] for this patient
== END 2024-04-26 00:59 ==
PROVIDERS: Emergency Provider Emergency Medicine; PCP Internal Medicine
DX: R30.0 Dysuria (principal); R10.32 Left lower quadrant pain; R11.2 Nausea with vomiting, unspecified
CPT/HCPCS: 36415; 80048; 96360; 99285; 74176; 81003; 85025; 99283

== ENCOUNTER 2024-05-18 15:55 | Emergency (ER) | payer OTHER, SELFPAY ==
[2024-05-18 16:06] VITALS: BP 104/74; PULSE 86; RESP 12; TEMP 37; O2SAT 95
--- NOTE | 2024-05-18 16:15 | DI.RAD_ITS ---
Exam(s) XR HAND RT COMPLETE XR FINGER RT MIDDLE EXAM: XR HAND RT COMPLETE and XR finger RT middle CLINICAL HISTORY: finger crushed in door, base of thrid digit. TECHNIQUE: 2D digital imaging was performed of the right middle finger and hand. Six images were ob tained. AP, lateral and oblique views were obtained. COMPARISON: No priors for comparison. FINDINGS: BONES: No acute fracture is present. No bony destructive lesion is seen. JOINTS: No dislocation present. The patient has had a prior 3rd MCP joint replacement. There are no priors for comparison. Portions of the joint replacement are seen on the lateral view. The componen t at the base of the proximal phalanx of the 3rd finger extends beyond the posterior cortex. This is appreciated on the lateral view. Correlation with prior films is recommended to assess for whether this is acute or not. There are degenerative changes seen in the hand particularly the interphalange al joints of the fingers. SOFT TISSUE: There is soft tissue swelling of the 3rd finger. IMPRESSION: 1. No definite acute fracture is seen. 2. The patient is status post 3rd metacarpal joint replacement. Please see the above discussion. Co mparison with prior films is recommended to assess for any change as described above. DATA REPOSITORY: RADIATION DOSE DELIVERED:
--- NOTE | 2024-05-18 16:32 | ED.GENADUL_ITS ---
Discharge Plan Disposition [facility] Condition: Stable Discharge Details Chief Complaint: Orthopedic Clinical Impression: Finger injury Primary Care Provider: Bird Chao ED Provider: Demar Latham Home Meds and New Rx's Prescriptions: No Action tamsulosin [Flomax] 0.4 mg capsule 0.4 mg PO DAILY metoprolol tartrate 25 mg tablet 25 mg PO BID aspirin 81 mg capsule 81 mg PO DAILY sulfamethoxazole-trimethoprim [Bactrim DS] 800-160 mg tablet 1 tab PO Q12H Qty: 7 0RF ondansetron 4 mg tablet,disintegrating 4 mg PO TID PRN aripiprazole [Abilify] 5 mg tablet 5 mg PO DAILY Discharge Instructions Instructions: Common Finger Injuries ED Additional Instructions: Please follow-up with [facility] hand specialist in 1 to 2 weeks. HPI General Date/Time Provider Initiated Documentation: 05/18/24 16:21 . HPI Narrative: 58-year-old male brought in by [facility] staff, accidentally slammed his right middle finger in cellar door approximately 3 days ago pain to base of finger no other injury Related Data Home Medications ?Medication ?Instructions ?Recorded ?Confirmed aspirin 81 mg capsule 81 mg PO DAILY 04/01/24 05/18/24 metoprolol tartrate 25 mg tablet 25 mg PO BID 04/01/24 05/18/24 tamsulosin 0.4 mg capsule (Flomax) 0.4 mg PO DAILY 04/01/24 05/18/24 sulfamethoxazole 800 1 tab PO Q12H #7 tabs 04/08/24 05/18/24 mg-trimethoprim 160 mg tablet (Bactrim DS) aripiprazole 5 mg tablet (Abilify) 5 mg PO DAILY 04/26/24 05/18/24 ondansetron 4 mg disintegrating 4 mg PO TID PRN 04/26/24 05/18/24 tablet Previous Rx's ?Medication ?Instructions ?Recorded sulfamethoxazole 800 1 tab PO Q12H #7 tabs 04/08/24 mg-trimethoprim 160 mg tablet (Bactrim DS) Allergies Allergy/AdvReac Type Severity Reaction Status Date / Time ciprofloxacin (From Cipro) Allergy Mild Hives Verified 05/18/24 16:10 General Stated Complaint: Orthopedic TIERNEY: 4 Exam Narrative Exam Narrative: Alert oriented interactive Moist mucous membrane tolerate secretions normal voice No respiratory distress speaking full sentences nontachypneic no retractions No evidence of thoracoabdominal trauma Right hand: Discomfort to third MCP with mild induration, prior surgical site scar evident clean dry intact appears chronic, full flexion extension and fingers intact, median radial and ulnar sensory distribution intact capillary refill intact radial pulse intact Alert oriented active moving all extremities without deficit Course Vital Signs Vital signs: Vital Signs Temperature 37.0 C 05/18/24 16:06 Pulse 86 05/18/24 16:06 Respiratory Rate 12 05/18/24 16:06 Blood Pressure 104/74 05/18/24 16:06 Pulse Oximetry 95 05/18/24 16:06 Temperature 37.0 C 05/18/24 16:06 Temperature Source Skin 05/18/24 16:06 Pulse 86 05/18/24 16:06 Respiratory Rate 12 05/18/24 16:06 Blood Pressure 104/74 05/18/24 16:06 Blood Pressure Position Sitting 05/18/24 16:06 Pulse Oximetry 95 05/18/24 16:06 Oxygen Delivery Method Room Air 05/18/24 16:06 Oxygen Flow Rate 0 05/18/24 16:06 Pain Level 6 05/18/24 16:06 Medical Decision Making 58-year-old male brought in by [facility] staff, accidentally slammed his right middle finger in cellar door approximately 3 days ago pain to base of finger no other injury; see examination neurovascular exam of involved limb intact, slight induration and discomfort to MCP joint third digit, consider contusion versus fracture versus less likely dislocation. [facility] however we have no copy of this image will repeat images here; patient okay repeating imaging, will dose with analgesia acetaminophen. 18: 40 x-ray read as no acute fracture however recommended comparison to old imaging given arthroplasty, there does appear to be an area of possible cortical discontinuity and distal third metacarpal, have contacted [facility] for comparison images as patient had arthroplasty there in November. 19: 08 was able to speak with orthopedic team [facility] at [facility] who after receiving information on case and imaging would like patient to follow-up in 1 to 2 weeks for examination in clinic, lower suspicion for acute fracture given history physical and imaging. Patient is able to make a fist, flexion and extension intact. Quality:SDOH Health Related Social Needs: No Data to Display PFSH All Active Problems (Updated 05/18/24 @ 19:11 by Demar Latham MD) Finger injury (Acute) Left flank pain (Acute) Medical History Restless leg syndrome CAD (coronary artery disease), [place] coronary artery HTN (hypertension) Neurogenic bladder Surgical History S/P implantation of urinary electronic stimulator device Social History Smoking/Tobacco Use Status: Never Smoking risk assessment performed?: Yes Alcohol Intake: never Substance use type: does not use Housing: other Additional Social history: currently incarcerated for next 7-8 years
[2024-05-18] MEDS: Acetaminophen 325 MG TAB 650 MG PO (16:42)
[2024-05-18 19:19] VITALS: BP 116/84; PULSE 80; RESP 18; TEMP 37.2; O2SAT 100
[2024-05-18 19:20] VITALS: BP 116/84; PULSE 80; RESP 18; TEMP 37.2; O2SAT 100
== END 2024-05-18 19:20 ==
PROVIDERS: Emergency Provider Emergency Medicine; PCP Internal Medicine
DX: S60.942A Unspecified superficial injury of right middle finger, initial encounter (principal); I25.10 Atherosclerotic heart disease of native coronary artery without angina pectoris; I10 Essential (primary) hypertension; Z96.691 Finger-joint replacement of right hand; Z79.82 Long term (current) use of aspirin; W23.0XXA Caught, crushed, jammed, or pinched between moving objects, initial encounter; Y93.89 Activity, other specified; Y92.143 Cell of prison as the place of occurrence of the external cause
CPT/HCPCS: 99283; 73130; 73140

== ENCOUNTER 2024-08-07 10:54 | Emergency (ER) | payer OTHER, SELFPAY ==
[2024-08-07 10:57] VITALS: BP 148/116; PULSE 83; RESP 18; TEMP 36.3; O2SAT 100
[2024-08-07] MEDS: Ondansetron 4 MG/2 ML VIAL IVP (11:36)
[2024-08-07 11:53] LABS: Bilirubin Negative (Negative); Blood Negative (Negative); Clarity Clear (Clear); Glucose Negative (Negative); Ketones Negative (Negative); Leukocyte Esterase Small (Negative); Nitrite Negative (Negative); Urobilinogen 0.2 mg/dL (Up to 0.2)
--- NOTE | 2024-08-07 12:00 | DI.CT_ITS ---
Exam(s) CT ABDOMEN PELVIS WO EXAM: CT ABDOMEN PELVIS WO CLINICAL HISTORY: right flank pain, uti. TECHNIQUE: Imaging Protocol: Axial computed tomography images with coronal and sagittal reformatted images were created and reviewed. COMPARISON: CT CT RENAL COLIC WO from 04/26/2024 FINDINGS: ABDOMEN: Lung Bases: Normal where visualized. Liver: Normal density. No measurable mass. Gallbladder and biliary tract: No radiodense calculus or biliary ductal dilation. Pancreas: Normal density, no abnormal calcifications or inflammatory process. Spleen: Normal. Kidneys: Normal size, contour and axis.No radiodense stones or obstructive uropathy. No suspicious ma sses seen. Adrenal glands: No mass is seen. Lymph nodes: Within normal limits. Abdominal Aorta: Abdominal portion non-dilated. Atherosclerotic calcification is present. PELVIS: Bladder:There is again seen mild thickening in the midline anterior urinary bladder. It is decreased slightly compared to the prior examination. No bladder stones are seen. Bowel: There are few diverticula seen in the colon but no evidence of acute diverticulitis. There is no evidence of bowel obstruction or bowel wall thickening. There is no evidence of appendicitis. Peritoneal cavity: No ascites, collection or mesenteric inflammatory response. No free air. Reproductive organs: Unremarkable as visualized. Bones: Within normal limits for the patient's age. Soft Tissues: There is again seen a nerve stimulator device. IMPRESSION: 1. No evidence of nephrolithiasis or obstructive uropathy. 2. Colonic diverticulosis without evidence of acute diverticulitis. No evidence of appendicitis. 3. Persistent mild thickening in the midline of the anterior urinary bladder. Follow-up as clinicall y appropriate. Urology consult should be considered. RADIATION DOSE DELIVERED: 390.1mGy.cm Total DLP DATA REPOSITORY: All CT scans at this facility are submitted to the National Radiology Data Registry (NRDR) Dose Index Registry (DIR) with the [employer] (ACR). RADIATION OPTIMIZATION: All CT scans at this facility use at least one of these dose optimization te chniques: automated exposure control; mA and/or kV adjustment per patient size (includes targeted exa ms where dose is matched to clinical indication); or iterative reconstruction.
[2024-08-07 12:02] LABS: Bacteria Rare HPF (Negative); C & S Indicated? No; Casts Negative LPF (Negative); Crystals Negative HPF (Negative); Epithelial Cells Few HPF (Negative); Mucus Negative (Negative); RBC 0-2 HPF (0-2)
[2024-08-07 12:04] LABS: Abs Immature Grans 0.05 10^3/uL (0.0-0.06); Absolute Eosinophil Count 0.18 10^3/uL (0.0-0.7); Absolute Monocyte Count 1.21 10^3/uL (0.1-0.8); Basophils % 0.4 %; Eosinophils % 1.3 %; HCT 42.5 % (40.0-50.0); HGB 14.9 g/dL (13.5-17.5); Immature Grans % 0.4 %; Lymphocytes % 11.7 %; MCH 30.3 pg (27.0-33.0); MCHC 35.1 % (32.0-36.0); MCV 87 fL (80-95); MPV 9.4 fL (8.0-11.0); Neutrophils % 77.2 %; Platelet Count 358 10^3/uL (130-400); RBC 4.91 10^6/uL (4.36-5.78); RDW 11.1 % (11.8-14.1); WBC 13.47 10^3/uL (4.4-10.8)
[2024-08-07 12:05] LABS: Absolute Basophil Count 0.05 10^3/uL (0.0-0.2); Absolute Lymphocyte Count 1.58 10^3/uL (1.2-3.4)
[2024-08-07 12:18] LABS: ALT 20 U/L (16-63); AST 16 U/L (15-37); Albumin 4.3 g/dL (3.4-5.0); Alkaline Phosphatase 87 U/L (46-116); Anion Gap 9.4 mmol/L (3-11); BUN 4 mg/dL (7-18); Bilirubin, Total 0.63 mg/dL (0.2-1.0); CO2 28.6 mmol/L (21.0-32.0); Calcium 9.8 mg/dL (8.5-10.1); Chloride 105 mmol/L (98-107); Estimated GFR 87.78 (mL/min/1.73m2); Glucose 93 mg/dL (74-106); Potassium 4.3 mmol/L (3.5-5.1); Sodium 143 mmol/L (136-145); Total Protein 8.1 g/dL (6.4-8.2)
--- NOTE | 2024-08-07 15:29 | ED.GENADUL_ITS ---
Discharge Plan Disposition Patient Disposition: Home Condition: Stable Discharge Details Clinical Impression: Acute urinary retention Primary Care Provider: Bird Chao ED Provider: Mayra Hernandez Home Meds and New Rx's Prescriptions: Continued tamsulosin [Flomax] 0.4 mg capsule 0.4 mg PO DAILY metoprolol tartrate 25 mg tablet 25 mg PO BID aspirin 81 mg capsule 81 mg PO DAILY sulfamethoxazole-trimethoprim [Bactrim DS] 800-160 mg tablet 1 tab PO Q12H Qty: 7 0RF ondansetron 4 mg tablet,disintegrating 4 mg PO TID PRN aripiprazole [Abilify] 5 mg tablet 10 mg PO DAILY Discharge Instructions Instructions: Urinary Retention (DC) Additional Instructions: follow-up with urology in one week continue taking flowmax your urine does not show evidence of UTI at this time you may discontinue keflex and macrobid please return with new or worsening complaints including, fever, chills, or worsening pain Referrals: Jackson Archuleta MD [ [facility] STAFF PHYSICIAN] - 1 day HPI General Date/Time Provider Initiated Documentation: 08/07/24 11:05 . HPI Narrative: 59-year-old male with history of neurogenic bladder chronically straight caths presenting with report of urinary symptoms, dysuria, difficulty with self- catheterization for the past 24 hours. Patient has been treated with numerous antibiotics for what is reported to be urinary tract symptoms. Patient states he is having difficulty straight cathing he says he is getting resistance and pain with some blood. He is taking 2 antibiotics Macrobid and Keflex right now for out of concern for urinary tract infection but does not feel they are effective. Patient has some right flank pain. Related Data Home Medications ?Medication ?Instructions ?Recorded ?Confirmed aspirin 81 mg capsule 81 mg PO DAILY 04/01/24 08/07/24 metoprolol tartrate 25 mg tablet 25 mg PO BID 04/01/24 08/07/24 tamsulosin 0.4 mg capsule (Flomax) 0.4 mg PO DAILY 04/01/24 08/07/24 sulfamethoxazole 800 1 tab PO Q12H #7 tabs 04/08/24 05/18/24 mg-trimethoprim 160 mg tablet (Bactrim DS) aripiprazole 5 mg tablet (Abilify) 10 mg PO DAILY 04/26/24 08/07/24 ondansetron 4 mg disintegrating 4 mg PO TID PRN 04/26/24 08/07/24 tablet Previous Rx's ?Medication ?Instructions ?Recorded sulfamethoxazole 800 1 tab PO Q12H #7 tabs 04/08/24 mg-trimethoprim 160 mg tablet (Bactrim DS) Allergies Allergy/AdvReac Type Severity Reaction Status Date / Time ciprofloxacin (From Cipro) Allergy Mild Hives Verified 08/07/24 11:00 General Stated Complaint: FlankPain TIERNEY: 3 Exam Narrative Exam Narrative: Alert and oriented 59-year-old male in no acute distress, mild suprapubic tenderness mild right flank pain, nontoxic, alert and oriented x 4, no peripheral edema Course Vital Signs Vital signs: Vital Signs Temperature 36.3 C L 08/07/24 10:57 Pulse 83 08/07/24 10:57 Respiratory Rate 18 08/07/24 10:57 Blood Pressure 148/116 H 08/07/24 10:57 Pulse Oximetry 100 08/07/24 10:57 Temperature 36.3 C L 08/07/24 10:57 Temperature Source Oral 08/07/24 10:57 Pulse 83 08/07/24 10:57 Respiratory Rate 18 08/07/24 10:57 Respiratory Effort Normal 08/07/24 11:02 Blood Pressure 148/116 H 08/07/24 10:57 Pulse Oximetry 100 08/07/24 10:57 Lab/Test Results Lab/Test Results: 08/07/24 11:50 Urine - Cath Straight Urine Culture - Pending Laboratory Tests Range/Units 08/07/24 08/07/24 11:20 11:50 WBC (4.4-10.8) 10^3/uL 13.47 H RBC (4.36-5.78) 10^6/uL 4.91 Hgb (13.5-17.5) g/dL 14.9 Hct (40.0-50.0) % 42.5 MCV (80-95) fL 87 MCH (27.0-33.0) pg 30.3 MCHC (32.0-36.0) % 35.1 RDW (11.8-14.1) % 11.1 L Plt Count (130-400) 10^3/uL 358 MPV (8.0-11.0) fL 9.4 Immature Gran % % 0.4 Neutrophils % % 77.2 Lymphocytes % % 11.7 Monocytes % % 9.0 Eosinophils % % 1.3 Basophils % % 0.4 Nucleated RBC % (0.0-0.3) % 0.0 Absolute Neutrophils (1.2-6.7) 10^3/uL 10.40 H Absolute Lymphocytes (1.2-3.4) 10^3/uL 1.58 Absolute Monocytes (0.1-0.8) 10^3/uL 1.21 H Absolute Eosinophils (0.0-0.7) 10^3/uL 0.18 Absolute Basophils (0.0-0.2) 10^3/uL 0.05 Sodium (136-145) mmol/L 143 Potassium (3.5-5.1) mmol/L 4.3 Chloride (98-107) mmol/L 105 Carbon Dioxide (21.0-32.0) mmol/L 28.6 Anion Gap (3-11) mmol/L 9.4 BUN (7-18) mg/dL 4 L Creatinine (0.70-1.30) mg/dL 1.0 Est GFR (CKD-EPI 2020) (mL/min/1.73m2) 87.78 Glucose (74-106) mg/dL 93 Calcium (8.5-10.1) mg/dL 9.8 Total Bilirubin (0.2-1.0) mg/dL 0.63 AST (15-37) U/L 16 ALT (16-63) U/L 20 Alkaline Phosphatase (46-116) U/L 87 Total Protein (6.4-8.2) g/dL 8.1 Albumin (3.4-5.0) g/dL 4.3 Urine Color (Yellow) Yellow Urine Clarity (Clear) Clear Urine pH (5-8) 6.0 Ur Specific [place] (1.005-1.025) 1.010 Urine Protein (Neg-Trace) mg/dL Negative Urine Ketones (Negative) mg/dL Negative Urine Blood (Negative) Negative Urine Nitrite (Negative) Negative Urine Bilirubin (Negative) Negative Urine Urobilinogen (Up to 0.2) mg/dL 0.2 Ur Leukocyte Esterase (Negative) Small H Urine RBC (0-2) HPF 0-2 Urine WBC (0-5) HPF 3-5 Ur Epithelial Cells (Negative) HPF Few Urine Crystals (Negative) HPF Negative Urine Bacteria (Negative) HPF Rare Urine Casts (Negative) LPF Negative Urine Mucus (Negative) Negative Ur Culture Indicated? No Urine Glucose (Negative) mg/dL Negative Medical Decision Making 59-year-old male, no acute distress, 200 cc of urine on bladder scan, right flank pain, labs were ordered to secondary to recurrent urinary tract infections which did not show evidence of significant acute abnormality, mild leukocytosis at 13,000, CT abdomen and pelvis does not show significant acute abnormality per radiology interpretation and my review. Given their assistance with straight catheterization I think patient requires Wade catheter placement at this time. I did confirm with the infirm[facility] at the correction[facility] facility where patient resides that they are comfortable with us placing Wade catheter on this patient. They state that patient will be placed in [facility] and will be observed very closely for safety. There is no indication for additional antibiotics at this time. I did send a urine culture although urinalysis is reassuring. Return precautions reviewed and patient expressed understanding Quality:SDOH Health Related Social Needs: No Data to Display PFSH All Active Problems (Updated 08/07/24 @ 13:43 by MAIKOL Lynn) Acute urinary retention (Acute) Medical History Restless leg syndrome CAD (coronary artery disease), [place] coronary artery HTN (hypertension) Neurogenic bladder Surgical History S/P implantation of urinary electronic stimulator device Social History Smoking/Tobacco Use Status: Never Smoking risk assessment performed?: Yes Alcohol Intake: never Substance use type: does not use Housing: other Additional Social history: currently incarcerated for next 7-8 years
== END 2024-08-07 13:55 | disposition home or self-care (01) ==
PROVIDERS: Emergency Provider Physician Assistant; PCP Internal Medicine
DX: R33.9 Retention of urine, unspecified (principal)
CPT/HCPCS: 51701; 80053; 96374; 99284; 74176; 81003; 81015; 85025; 87086; J2405